=== PATIENT | female | born 1955 | race Caucasian/White ===

== ENCOUNTER 2017-12-05 13:50 | Emergency (ER) | payer BC ==
[~2017-12-05] VITALS: Ht 162.6 cm; Wt 55.4 kg
[2017-12-05 14:08] VITALS: BP 137/67; PULSE 78; RESP 16; TEMP 97.5; O2SAT 99
[2017-12-05] MEDS ORDERED: SODIUM CHLOR 0.9% 1000 ML INJ 1,000 ML IV SCH (14:24)
[2017-12-05] MEDS ORDERED: SODIUM CHLORIDE 0.9% FLUSH 10 ML FLUSH IV FLUSH PRN (14:30)
--- NOTE | 2017-12-05 14:31 | PD ---
HPI Chief Complaint: GI Complaint Time Seen by Provider: 14:12 Travel History International Travel<30 days: No Contact w/Intl Traveler<30days: No Traveled to known affect area: No History of Present Illness HPI This is a 62-year-old female who presents for abdominal pain and diarrhea. She states that about a month ago, she ate a hamburger and the next morning developed crampy lower abdominal pain and diarrhea. She has had intermittent episodes of loose stool and diarrhea since then. It has not been every single day. She had about 3 episodes this morning. No melena or hematochezia. She complains of mild crampy lower abdominal pain and also episodes of epigastric pain. No chest pain, dyspnea, diaphoresis. No associated nausea, vomiting. She has tried taking Protonix without complete relief. No fever, chills. No urinary complaints. Symptoms are mild in severity. Onset gradual. No known alleviating or aggravating factors. PFSH Past Medical History Cancer: Yes (L BREAST, LUMPECTOMY) Chemotherapy: Yes (L BREAST) Radiation Therapy: Yes Tetanus Vaccination: < 5 Years Influenza Vaccination: Yes ?: Not Past Surgical History Cholecystectomy: Yes Social History Alcohol Use: Yes (1 WINE DAILY) Tobacco Use: No Substance Use: No Allergies-Medications (Allergen,Severity, Reaction): Coded Allergies: No Known Allergies (Unverified , 12/05/17) Reported Meds & Prescriptions Reported Meds & Active Scripts Active Bentyl (Dicyclomine HCl) 10 Mg Cap 10 Mg PO TID PRN Review of Systems Except as stated in HPI: all other systems reviewed are Neg Physical Exam Narrative GENERAL: Alert, well nourished, well appearing patient resting on the bed in no acute distress. Vital Signs reviewed SKIN: Focused skin assessment warm/dry. HEAD: Atraumatic. Normocephalic. EYES: Pupils equal and round. No scleral icterus. No injection or drainage. ENT: No nasal bleeding or discharge. Mucous membranes pink and moist. NECK: Trachea midline. No JVD. Spontaneous, painless full range of motion with no meningismus CARDIOVASCULAR: Regular rate and rhythm. No murmur appreciated. Extremities warm and well perfused with bounding peripheral pulses RESPIRATORY: No accessory muscle use. Clear to auscultation. Breath sounds equal bilaterally. Breathing easily and speaking in full sentences GASTROINTESTINAL: Abdomen soft, minimally tender in suprapubic and left lower quadrant, nondistended. Normal bowel sounds. No rigid, rebound, guarding MUSCULOSKELETAL: No obvious deformities. No clubbing. No cyanosis. No edema. Compartments are soft NEUROLOGICAL: Awake and alert. No obvious cranial nerve deficits. Motor grossly within normal limits. Normal speech. Sensation intact. Normal gait Data Data Last Documented VS Vital Signs Date Time Temp Pulse Resp B/P (MAP) Pulse Ox O2 Delivery O2 Flow Rate FiO2 12/05/17 17:44 12/05/17 15:08 78 18 97 Room Air 12/05/17 14:08 97.5 Orders Orders Complete Blood Count With Diff (12/05/17 14:24) Comprehensive Metabolic Panel (12/05/17 14:24) Lipase (12/05/17 14:24) Urinalysis - C+S If Indicated (12/05/17 14:24) Iv Access Insert/Monitor (12/05/17 14:24) Ecg Monitoring (12/05/17 14:24) Oximetry (12/05/17 14:24) Sodium Chlor 0.9% 1000 Ml Inj (Ns 1000 M (12/05/17 14:24) Sodium Chloride 0.9% Flush (Ns Flush) (12/05/17 14:30) Electrocardiogram (12/05/17 14:24) Ckmb (Isoenzyme) Profile (12/05/17 14:24) Troponin I (12/05/17 14:24) Ct Abd/Pel W/O Iv Contrast (12/05/17 14:24) Ed Discharge Order (12/05/17 17:48) Labs Laboratory Tests Test 12/05/17 14:45 12/05/17 15:00 12/05/17 15:39 Urine Color YELLOW Urine Turbidity CLEAR Urine pH 6.0 Urine Specific [place] 1.011 Urine Protein NEG mg/dL Urine Glucose (UA) NEG mg/dL Urine Ketones NEG mg/dL Urine Occult Blood TRACE Urine Nitrite NEG Urine Bilirubin NEG Urine Leukocyte Esterase SMALL Urine RBC 0-3 /hpf Urine WBC 6-8 /hpf Urine Squamous Epithelial Cells 0-5 /hpf Microscopic Urinalysis Comment CULT NOT INDICATED White Blood Count 5.9 TH/MM3 Red Blood Count 4.25 MIL/MM3 Hemoglobin 14.3 GM/DL Hematocrit 42.4 % Mean Corpuscular Volume 99.8 FL Mean Corpuscular Hemoglobin 33.5 PG Mean Corpuscular Hemoglobin Concent 33.6 % Red Cell Distribution Width 14.1 % Platelet Count 189 TH/MM3 Mean Platelet Volume 7.2 FL Neutrophils (%) (Auto) 72.9 % Lymphocytes (%) (Auto) 13.3 % Monocytes (%) (Auto) 8.7 % Eosinophils (%) (Auto) 1.8 % Basophils (%) (Auto) 3.3 % Neutrophils # (Auto) 4.3 TH/MM3 Lymphocytes # (Auto) 0.8 TH/MM3 Monocytes # (Auto) 0.5 TH/MM3 Eosinophils # (Auto) 0.1 TH/MM3 Basophils # (Auto) 0.2 TH/MM3 CBC Comment DIFF FINAL Differential Comment Blood Urea Nitrogen 6 MG/DL Creatinine 0.80 MG/DL Random Glucose 95 MG/DL Total Protein 7.9 GM/DL Albumin 3.8 GM/DL Calcium Level 8.9 MG/DL Alkaline Phosphatase 112 U/L Aspartate Amino Transf (AST/SGOT) 34 U/L Alanine Aminotransferase (ALT/SGPT) 40 U/L Total Bilirubin 0.5 MG/DL Sodium Level 131 MEQ/L Potassium Level 4.0 MEQ/L Chloride Level 96 MEQ/L Carbon Dioxide Level 28.3 MEQ/L Anion Gap 7 MEQ/L Estimat Glomerular Filtration Rate 73 ML/MIN Total Creatine Kinase 51 U/L Troponin I LESS THAN 0.02 NG/ML Lipase 225 U/L MDM Medical Decision Making Medical Screen Exam Complete: Yes Emergency Medical Condition: Yes Interpretation(s) EKG shows sinus rhythm with a rate of 76. No acute ST elevation Laboratory Tests Test 12/05/17 14:45 12/05/17 15:00 12/05/17 15:39 Urine Color YELLOW Urine Turbidity CLEAR Urine pH 6.0 Urine Specific [place] 1.011 Urine Protein NEG mg/dL Urine Glucose (UA) NEG mg/dL Urine Ketones NEG mg/dL Urine Occult Blood TRACE Urine Nitrite NEG Urine Bilirubin NEG Urine Leukocyte Esterase SMALL Urine RBC 0-3 /hpf Urine WBC 6-8 /hpf Urine Squamous Epithelial Cells 0-5 /hpf Microscopic Urinalysis Comment CULT NOT INDICATED White Blood Count 5.9 TH/MM3 Red Blood Count 4.25 MIL/MM3 Hemoglobin 14.3 GM/DL Hematocrit 42.4 % Mean Corpuscular Volume 99.8 FL Mean Corpuscular Hemoglobin 33.5 PG Mean Corpuscular Hemoglobin Concent 33.6 % Red Cell Distribution Width 14.1 % Platelet Count 189 TH/MM3 Mean Platelet Volume 7.2 FL Neutrophils (%) (Auto) 72.9 % Lymphocytes (%) (Auto) 13.3 % Monocytes (%) (Auto) 8.7 % Eosinophils (%) (Auto) 1.8 % Basophils (%) (Auto) 3.3 % Neutrophils # (Auto) 4.3 TH/MM3 Lymphocytes # (Auto) 0.8 TH/MM3 Monocytes # (Auto) 0.5 TH/MM3 Eosinophils # (Auto) 0.1 TH/MM3 Basophils # (Auto) 0.2 TH/MM3 CBC Comment DIFF FINAL Differential Comment Blood Urea Nitrogen 6 MG/DL Creatinine 0.80 MG/DL Random Glucose 95 MG/DL Total Protein 7.9 GM/DL Albumin 3.8 GM/DL Calcium Level 8.9 MG/DL Alkaline Phosphatase 112 U/L Aspartate Amino Transf (AST/SGOT) 34 U/L Alanine Aminotransferase (ALT/SGPT) 40 U/L Total Bilirubin 0.5 MG/DL Sodium Level 131 MEQ/L Potassium Level 4.0 MEQ/L Chloride Level 96 MEQ/L Carbon Dioxide Level 28.3 MEQ/L Anion Gap 7 MEQ/L Estimat Glomerular Filtration Rate 73 ML/MIN Total Creatine Kinase 51 U/L Troponin I LESS THAN 0.02 NG/ML Lipase 225 U/L Last 24 hours Impressions Abdomen/Pelvis CT 12/05/17 1424 Signed Impressions: Service Date/Time: Tuesday, December 05, 2017 16:29 - CONCLUSION: 1. 3.3 cm cystic structure in the left adnexal region could be associated with either the left ovary or the posterior wall of the urinary bladder. Findings are overtly benign and the lesion could represent an ovarian cyst or bladder diverticulum. Pelvic ultrasound could be performed for further characterization, however. 2. Patient is status post cholecystectomy. 3. Mild diverticular disease without diverticulitis. 4. Otherwise negative Jake Crockett MD Differential Diagnosis Gastroenteritis, gastritis, peptic ulcer disease, colitis, diverticulitis Narrative Course IV access was established. Labs were performed. Patient refused IV fluids. The patient's IV infiltrated in CT. About 50 cc of contrast entered the patient subcutaneous region of the right mid to upper arm. I immediately assessed her. She was reassessed multiple times while in the emergency department and showed no evidence of compartment syndrome. Her arm was immediately elevated and cold compresses were applied. Patient was given extensive counseling by myself as well as the technical aid regarding supportive care for this. I reviewed the results of the workup with her. Patient is aware of the left adnexal cystic mass. She follows closely with this with her primary physician. Patient is eager to be discharged. We discussed plan for discharge with supportive care, Bentyl for cramping and close outpatient follow-up with primary physician and proposal editor. Patient understands the importance of close outpatient follow-up. She understands she may require further testing and treatment as an outpatient. She understands strict return indications. She is comfortable with this plan and eager to go home. Diagnosis Primary Impression: Diarrhea Qualified Codes: R19.7 - Diarrhea, unspecified Referrals: Fatou Rosen MD Primary Care Physician 2 days Patient Instructions: Acute Diarrhea (GEN), General Instructions Additional Instructions: Drink plenty of fluids to stay well-hydrated. Use Bentyl as needed for cramping. Follow-up closely with primary physician. Follow-up with proposal editor. You may require further testing and treatment as an outpatient. Keep right arm elevated. Alternate ice and heat. Return if you have uncontrolled pain in right arm, blistering of the skin, numbness in the hands, other concerns. Med/Other Pt SpecificInfo: Prescription(s) given Scripts Dicyclomine (Bentyl) 10 Mg Cap 10 MG PO TID Y for ABDOMINAL CRAMPING, #15 CAP 0 Refills Prov: Almaz Veliz MD 12/05/17 Disposition: 01 DISCHARGE HOME Condition: Stable Almaz Veliz MD Dec 05, 2017 14:31
[2017-12-05 15:01] LABS: BILIRUBIN, URINE NEG (NEG); BLOOD, URINE TRACE (NEG); GLUCOSE,URINE NEG (NEG); KETONE, URINE NEG (NEG); NITRITE,URINE NEG (NEG); URINE LEUKOCYTE ESTERASE SMALL (NEG)
[2017-12-05 15:05] LABS: URINE COLOR YELLOW (YELLW/STRAW)
[2017-12-05 15:06] LABS: RBC, URINE 0-3 /hpf (0-3); SQUAMOUS EPITHELIAL CELL URINE 0-5 /hpf (0-5)
[2017-12-05 15:08] VITALS: BP 177/98; PULSE 78; RESP 18; O2SAT 97
[2017-12-05 15:08] LABS: AUTOMATED NEUTROPHIL # 4.3 TH/MM3 (1.8-7.7); BASOPHIL # 0.2 TH/MM3 (0-0.2); BASOPHIL % 3.3 % (0.0-2.0); EOSINOPHIL # 0.1 TH/MM3 (0-0.4); EOSINOPHIL % 1.8 % (0.0-4.0); HEMATOCRIT 42.4 % (35.0-46.0); HEMOGLOBIN 14.3 GM/DL (11.6-15.3); LYMPH % 13.3 % (9.0-44.0); LYMPHOCYTE # 0.8 TH/MM3 (1.0-4.8); MEAN CELL VOLUME 99.8 FL (80.0-100.0); MEAN CORPUSCULAR HEMOGLOBIN 33.5 PG (27.0-34.0); MEAN CORPUSCULAR HGB CONC 33.6 % (32.0-36.0); MEAN PLATELET VOLUME 7.2 FL (7.0-11.0); MONO % 8.7 % (0.0-8.0); MONOCYTE # 0.5 TH/MM3 (0-0.9); NEUT % 72.9 % (16.0-70.0); PLATELET COUNT 189 TH/MM3 (150-450); RED BLOOD COUNT 4.25 MIL/MM3 (4.00-5.30); RED CELL DISTRIBUTION WIDTH 14.1 % (11.6-17.2); WHITE BLOOD COUNT 5.9 TH/MM3 (4.0-11.0)
[2017-12-05 15:58] LABS: CHLORIDE 96 MEQ/L (98-107); SODIUM (NA) 131 MEQ/L (136-145)
[2017-12-05 16:02] LABS: ALBUMIN 3.8 GM/DL (3.4-5.0); BICARBONATE 28.3 MEQ/L (21.0-32.0); BLOOD UREA NITROGEN 6 MG/DL (7-18); CALCIUM 8.9 MG/DL (8.5-10.1); GLUCOSE,RANDOM 95 MG/DL (74-106)
[2017-12-05 16:05] LABS: ALT (GPT) 40 U/L (10-53); AST (GOT) 34 U/L (15-37); GLOMERULAR FILTRATION RATE 73 ML/MIN (>89)
[2017-12-05 16:07] LABS: TOTAL BILIRUBIN ADULT 0.5 MG/DL (0.2-1.0); TOTAL PROTEIN 7.9 GM/DL (6.4-8.2)
[2017-12-05 16:08] LABS: ALKALINE PHOSPHATASE 112 U/L (45-117)
[2017-12-05 16:10] LABS: TROPONIN I LESS THAN 0.02 NG/ML (0.02-0.05)
--- NOTE | 2017-12-05 17:15 | RADRPT ---
EXAM DATE/TIME: 12/05/2017 16:29 [facility] COMPARISON: No previous studies available for comparison. INDICATIONS : Abdominal pain with nausea, vomiting, and diarrhea. ORAL CONTRAST: No oral contrast ingested. RADIATION DOSE: 5.11 CTDIvol (mGy) MEDICAL HISTORY : Carcinoma, breast. SURGICAL HISTORY : Cholecystectomy. ENCOUNTER: Initial ACUITY: 1 month PAIN SCALE: 7/10 LOCATION: abdomen TECHNIQUE: Volumetric scanning of the abdomen and pelvis was performed. Using automated exposure control and ad justment of the mA and/or kV according to patient size, radiation dose was kept as low as reasonably achievable to obtain optimal diagnostic quality images. DICOM format image data is available electro nically for review and comparison. FINDINGS: LOWER LUNGS: The visualized lower lungs are clear. LIVER: Homogeneous density without lesion. There is no dilation of the biliary tree. Patient is status post cholecystectomy. SPLEEN: Normal size without lesion. PANCREAS: Within normal limits. KIDNEYS: Normal in size and shape. There is no mass, stone, or hydronephrosis. ADRENAL GLANDS: Within normal limits. VASCULAR: There is no aortic aneurysm. BOWEL/MESENTERY: The stomach, small bowel, and colon demonstrate no acute abnormality. There is no free intraperitone al air or fluid. The appendix is identified and is radiographically normal. A few diverticula in the distal descending colon without diverticulitis ABDOMINAL WALL: Within normal limits. RETROPERITONEUM: There is no lymphadenopathy. BLADDER: No wall thickening or mass. REPRODUCTIVE: 2.9 x 3.3 cm cystic structure associated with either the left adnexa or posterior wall of the urinary bladder. INGUINAL: There is no lymphadenopathy or hernia. MUSCULOSKELETAL: Within normal limits for patient age. CONCLUSION: 1. 3.3 cm cystic structure in the left adnexal region could be associated with either the left ovary or the posterior wall of the urinary bladder. Findings are overtly benign and the lesion could repres ent an ovarian cyst or bladder diverticulum. Pelvic ultrasound could be performed for further charact erization, however. 2. Patient is status post cholecystectomy. 3. Mild diverticular disease without diverticulitis. 4. Otherwise negative Jake Crockett MD on December 05, 2017 at 17:05 Board Certified Radiologist. This report was verified electronically.
[2017-12-05] MEDS ORDERED: DICY10 PO (17:47)
--- NOTE | 2017-12-06 14:29 | EKG ---
Date Performed: 12/05/2017 Time Performed: 15:07:44 PTAGE: 62 years EKG: Sinus rhythm NORMAL ECG NO PREVIOUS TRACING DOCTOR: Melchor Khanna Interpretating Date/Time 12/06/2017 14:28:09
== END 2017-12-05 17:59 | disposition home or self-care (01) ==
LOC: PHED 13:50
DX: R19.7 Diarrhea, unspecified (principal); Z85.3 Personal history of malignant neoplasm of breast
CPT/HCPCS: 74176; 80053; 81001; 82550; 83690; 84484; 85025; 93005; 99285